=== PATIENT | female | born 1960 | race Caucasian/White ===

== ENCOUNTER 2021-07-26 12:56 | Emergency (ER) | payer OTHER ==
[~2021-07-26 12:56] MED LIST: CIPRO500 MG PO; DIOVAN80 MG PO; FLAGYL500 MG PO; LACTINEX1 EACH PO; NORCO 5/3251 EACH PO
[2021-07-26 16:04] LABS: BASOPHIL 0.3 % (0-2); EOSINOPHIL 1.1 % (0-5); HCT 52.1 % (37.0-47.0); HGB 16.7 g/dl (12.5-16.0); LYMPHOCYTE 24.2 % (15-48); MCH 28.8 pg (25.0-31.0); MCHC 32.1 g/dL (32.0-36.0); MONOCYTE 5.7 % (0-12); MPV 9.7 fL (6.0-9.5); NEUTROPHIL 68.4 % (41-80); NRBC 0; PLT 226 K/uL (150-400); RBC 5.79 M/uL (4.20-5.40); RDW 12.3 % (11.5-14.0); WBC 6.4 K/uL (4.0-10.5)
[2021-07-26 16:07] LABS: BILIRUBIN NEGATIVE (NEGATIVE); BLOOD NEGATIVE Ery/uL (NEGATIVE); CLARITY CLEAR (CLEAR); COLOR YELLOW (YELLOW); GLUCOSE (U) NORMAL (NORMAL); LEUKOCYTES NEGATIVE Leu/uL (NEGATIVE); NITRITE NEGATIVE (NEGATIVE); PROTEIN NEGATIVE (NEGATIVE); UROBILINOGEN 0.2 mg/dL (0.2-1.0)
[2021-07-26 16:38] LABS: ALBUMIN 3.8 g/dL (3.4-5.0); BILIRUBIN - TOTAL 0.7 mg/dL (0.2-1.0); BUN/CREAT RATIO (CALC) 17.8 RATIO; CREATININE 0.9 mg/dL (0.51-0.95); GLOBULIN (CALCULATION) 4.4 g/dL; POTASSIUM 4.2 mmol/L (3.5-5.1); TOTAL PROTEIN 8.2 g/dL (6.4-8.2)
[2021-07-26] MEDS ORDERED: PEPCID AC20 MG PO (17:19)
== END 2021-07-26 18:59 | disposition home or self-care (01) ==
LOC: FER 12:56
PROVIDERS: Nurse Practitioner Family
DX: R10.10 Upper abdominal pain, unspecified (principal); M54.9 Dorsalgia, unspecified; R42 Dizziness and giddiness
CPT/HCPCS: 36415; 80053; 81003; 82150; 83690; 84484; 85025; 93005